=== PATIENT | male | born 2000 | race Caucasian/White ===

== ENCOUNTER 2018-08-08 09:34 | Emergency (ER) | payer OTHER ==
--- NOTE | 2018-08-08 10:02 | ER ---
Nurse's Notes [facility] Name: Arben Lenz Age: 17 yrs Sex: Male : 2000 Arrival Date: 08/08/2018 Time: 09:36 Bed 23 Private MD: None, None Diagnosis: Scabies Presentation: 08/08 09:49 Presenting complaint: Patient states: last week or 2 has been itching all over his iw body, pt thinks it' scabies. Transition of care: patient was not received from another setting of care. Onset of symptoms was July 28, 2018. Risk Assessment: Do you want to hurt yourself or someone else? Patient reports no desire to harm self or others. Initial Sepsis Screen: Does the patient meet any 2 criteria? No. Patient's initial sepsis screen is negative. Does the patient have a suspected source of infection? No. Patient's initial sepsis screen is negative. Care prior to arrival: None. 09:49 Method Of Arrival: Ambulatory iw 09:49 Acuity: RITA 5 iw Triage Assessment: 09:57 General: Appears in no apparent distress. Behavior is calm, cooperative. Pain: Denies ls4 pain. Historical: - Allergies: 09:51 No Known Allergies; iw - Home Meds: 09:51 None [Active]; iw - PMHx: 09:51 None; iw - PSHx: 09:51 None; iw - Immunization history:: Adult Immunizations Adult Immunizations not up to date. - Social history:: Smoking status: Patient/guardian denies using tobacco. - Ebola Screening: : Patient negative for fever greater than or equal to 101.5 degrees Fahrenheit, and additional compatible Ebola Virus Disease symptoms Patient denies exposure to infectious person Patient denies travel to an Ebola-affected area in the 21 days before illness onset No symptoms or risks identified at this time. Screenin:59 Abuse screen: Denies threats or abuse. Denies injuries from another. Nutritional ls4 screening: No deficits noted. Tuberculosis screening: No symptoms or risk factors identified. Fall Risk None identified. Assessment: 10:00 General: Appears in no apparent distress. Behavior is calm, cooperative. Neuro: No ls4 deficits noted. Cardiovascular: No deficits noted. Respiratory: No deficits noted. Derm: Reports itching, since one week . Vital Signs: 09:51 BP 152 / 70; Pulse 60; Resp 16; Temp 98.0; Pulse Ox 98% on R/A; Weight 74.84 kg; Height iw 6 ft. 2 in. (187.96 cm); Pain 0/10; 09:51 Body Mass Index 21.18 (74.84 kg, 187.96 cm) ED Course: 09:36 Patient arrived in ED. mr 09:37 None, None is Private Physician. mr 09:51 Triage completed. iw 09:51 Arm band placed on. iw 09:55 Swati Stacy, RN is Primary Nurse. ls4 09:57 Alicia Leary FNP-C [facility]. snw 09:57 Jair Birch MD is Attending Physician. snw 09:59 Patient has correct armband on for positive identification. Bed in low position. Call ls4 light in reach. Side rails up X 1. 09:59 No provider procedures requiring assistance completed. ls4 10:22 Patient did not have IV access during this emergency room visit. ls4 Administered Medications: No medications were administered Outcome: 10:02 Discharge ordered by . snw 10:22 Discharged to home ambulatory, with family. ls4 10:22 Condition: good 10:22 Discharge instructions given to patient, family, Instructed on discharge instructions, follow up and referral plans. medication usage, safety practices, Demonstrated understanding of instructions, follow-up care, medications, Prescriptions given X 2. 10:22 Patient left the ED. ls4 Signatures: Alicia Leary FNP-C FNP-Paulie Dee Emerson Zoe Mitchell RN RN Swati Stacy, RN RN ls4 Corrections: (The following items were deleted from the chart) 09:52 09:49 Acuity: RITA 4 iw iw
--- NOTE | 2018-08-08 10:02 | EDPHYS ---
Physician Documentation [facility] Name: Arben Lenz Age: 17 yrs Sex: Male : 2000 Arrival Date: 08/08/2018 Time: 09:36 Bed 23 Private MD: None, None ED Physician Jair Birch HPI: 08/08 10:04 This 17 yrs old Male presents to ER via Ambulatory with complaints of Rash. snw 10:04 The patient's rash thought to be caused by scabies. The rash is located on the body snw diffusely. The rash can be described as erythematous, papular. Onset: The symptoms/episode began/occurred suddenly, 1.5 week(s) ago, and became persistent. Associated signs and symptoms: Pertinent positives: itching. Severity of symptoms: At their worst the symptoms were moderate. Treatment given at home: Benadryl. The patient has not experienced similar symptoms in the past. It is unknown whether or not the patient has recently seen a physician. Historical: - Allergies: 09:51 No Known Allergies; iw - Home Meds: 09:51 None [Active]; iw - PMHx: 09:51 None; iw - PSHx: 09:51 None; iw - Immunization history:: Adult Immunizations Adult Immunizations not up to date. - Social history:: Smoking status: Patient/guardian denies using tobacco. - Ebola Screening: : Patient negative for fever greater than or equal to 101.5 degrees Fahrenheit, and additional compatible Ebola Virus Disease symptoms Patient denies exposure to infectious person Patient denies travel to an Ebola-affected area in the 21 days before illness onset No symptoms or risks identified at this time. ROS: 10:03 Constitutional: Negative for fever, chills, and weight loss, Eyes: Negative for injury, snw pain, redness, and discharge, ENT: Negative for injury, pain, and discharge, Neck: Negative for injury, pain, and swelling, Cardiovascular: Negative for chest pain, palpitations, and edema, Respiratory: Negative for shortness of breath, cough, wheezing, and pleuritic chest pain, Abdomen/GI: Negative for abdominal pain, nausea, vomiting, diarrhea, and constipation, Back: Negative for injury and pain, : Negative for injury, bleeding, discharge, and swelling, MS/Extremity: Negative for injury and deformity, Neuro: Negative for headache, weakness, numbness, tingling, and seizure, Psych: Negative for depression, anxiety, suicide ideation, homicidal ideation, and hallucinations. 10:03 Skin: Positive for rash. Exam: 10:03 Constitutional: This is a well developed, well nourished patient who is awake, alert, snw and in no acute distress. Head/Face: Normocephalic, atraumatic. Eyes: Pupils equal round and reactive to light, extra-ocular motions intact. Lids and lashes normal. Conjunctiva and sclera are non-icteric and not injected. Cornea within normal limits. Periorbital areas with no swelling, redness, or edema. ENT: Nares patent. No nasal discharge, no septal abnormalities noted. Tympanic membranes are normal and external auditory canals are clear. Oropharynx with no redness, swelling, or masses, exudates, or evidence of obstruction, uvula midline. Mucous membranes moist. Neck: Trachea midline, no thyromegaly or masses palpated, and no cervical lymphadenopathy. Supple, full range of motion without nuchal rigidity, or vertebral point tenderness. No Meningismus. Chest/axilla: Normal chest wall appearance and motion. Nontender with no deformity. No lesions are appreciated. Cardiovascular: Regular rate and rhythm with a normal S1 and S2. No gallops, murmurs, or rubs. Normal PMI, no JVD. No pulse deficits. Respiratory: Lungs have equal breath sounds bilaterally, clear to auscultation and percussion. No rales, rhonchi or wheezes noted. No increased work of breathing, no retractions or nasal flaring. Abdomen/GI: Soft, non-tender, with normal bowel sounds. No distension or tympany. No guarding or rebound. No evidence of tenderness throughout. Back: No spinal tenderness. No costovertebral tenderness. Full range of motion. MS/ Extremity: Pulses equal, no cyanosis. Neurovascular intact. Full, normal range of motion. Neuro: Awake and alert, GCS 15, oriented to person, place, time, and situation. Cranial nerves II-XII grossly intact. Motor strength 5/5 in all extremities. Sensory grossly intact. Cerebellar exam normal. Normal gait. Psych: Awake, alert, with orientation to person, place and time. Behavior, mood, and affect are within normal limits. 10:03 Skin: Appearance: normal except for affected area, scabies. Vital Signs: 09:51 BP 152 / 70; Pulse 60; Resp 16; Temp 98.0; Pulse Ox 98% on R/A; Weight 74.84 kg; Height iw 6 ft. 2 in. (187.96 cm); Pain 0/10; 09:51 Body Mass Index 21.18 (74.84 kg, 187.96 cm) iw MDM: 09:58 Patient medically screened. snw 10:04 Data reviewed: vital signs, nurses notes. Data interpreted: Pulse oximetry: on room air snw is 98 %. Interpretation: normal. Counseling: I had a detailed discussion with the patient and/or guardian regarding: the historical points, exam findings, and any diagnostic results supporting the discharge/admit diagnosis. Administered Medications: No medications were administered Disposition: 10:23 Co-signature as Attending Physician, Jair Birch MD I agree with the assessment and anne plan of care. Disposition: 08/08/18 10:02 Discharged to Home. Impression: Scabies. - Condition is Stable. - Discharge Instructions: Scabies, Adult. - Prescriptions for Elimite 5 % Topical Cream - apply 1 application by TOPICAL route one time Wash after 12 hours.; 60 gram. Zyrtec 10 mg Oral Tablet - take 1 tablet by ORAL route once daily As needed; 20 tablet. - Medication Reconciliation Form, Thank You Letter, Antibiotic Education, Prescription Opioid Use form. - Follow up: Emergency Department; When: As needed; Reason: Worsening of condition. Follow up: Private Physician; When: 1 - 2 days; Reason: Recheck today's complaints, Continuance of care, Re-evaluation by your physician. Signatures: Jair Birch MD MD cha Therrien, Shelly, PARACHUTE MENDER-C PARACH[employer] MENDER-Csnw Zoe Mitchell, RN RN Swati Vicente, RN RN ls4 Corrections: (The following items were deleted from the chart) 10:22 10:02 08/08/2018 10:02 Discharged to Home. Impression: Scabies. Condition is Stable. ls4 Forms are Medication Reconciliation Form, Thank You Letter, Antibiotic Education, Prescription Opioid Use. Follow up: Emergency Department; When: As needed; Reason: Worsening of condition. Follow up: Private Physician; When: 1 - 2 days; Reason: Recheck today's complaints, Continuance of care, Re-evaluation by your physician. snw
== END 2018-08-08 10:22 | disposition home or self-care (01) ==
LOC: ER 09:34
DX: B86 Scabies (principal)
CPT/HCPCS: 99282